=== PATIENT | female | born 1950 | race Caucasian/White ===

== ENCOUNTER 2017-11-26 22:43 | Observation (INO) | payer MEDICARE ==
[2017-11-26] MEDS ORDERED: Aspirin Low Dose CHEW TAB* 81 MG PO ONE (23:27)
[2017-11-26] MEDS ORDERED: Morphine INJ* 4 MG/ML 1 ML SYRINGE (NEW SYRINGE VERSION) IV ONE (23:27)
[2017-11-26] MEDS ORDERED: Ondansetron INJ* 2 MG/ML VIAL IV ONE (23:27)
[2017-11-27 00:38] LABS: ABS Basophils 0.1 10^3/ul (0-0.2); ABS Eosinophils 0 10^3/ul (0-0.6); ABS Lymphocytes 3.1 10^3/ul (1.0-4.8); ABS Monocytes 0.8 10^3/ul (0-0.8); ABS Nucleated RBC 0 10^3/ul; Eosinophil % 0.1 % (0-6); Hematocrit 44 % (35-47); Hemoglobin 14.2 g/dl (12.0-16.0); Lymphocyte % 20.3 % (25-47); Mean Corpuscular HGB Conc 33 g/dl (31-36); Mean Corpuscular Hemoglobin 25 pg (27-31); Mean Corpuscular Volume 76 fL (80-97); Mean Platelet Volume 8 um3 (7.4-10.4); Nucleated Red Blood Cells % 0.1; Platelet Count 251 10^3/ul (150-450); Red Blood Count 5.72 10^6/ul (4.0-5.4); Red Cell Distribution Width 14 % (10.5-15)
[2017-11-27 00:50] LABS: INR 1.14 (0.77-1.02)
[2017-11-27 00:55] LABS: EGFR Non-African American 54.8 (>60)
[2017-11-27] MEDS ORDERED: Morphine INJ* 4 MG/ML 1 ML SYRINGE (NEW SYRINGE VERSION) IV ONE (01:54)
--- NOTE | 2017-11-27 02:38 | ED ---
Topher Anton Tecjoon, scribed for Eliud Aldana MD on 11/26/17 at 2323 . HPI Chest Pain - HPI Summary HPI Summary: This patient is a 67 year old female BIBA to [facility] with a chief complaint of chest pain since approx. 1200 today. The pain is described as a pressure that radiates to her neck. The pain is rated 7/10 in severity. Symptoms aggravated by nothing. Symptoms alleviated by nothing. 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 Patient additionally reports nausea, vomiting. Patient states her last stress test was 2-3 years ago. - History of Current Complaint Chief Complaint: EDChestPainROMI Time Seen by Provider: 11/26/17 23:01 Hx Obtained From: Patient Onset/Duration: Started Hours Ago, Still Present Time of Onset: 12:00 Timing: Constant Initial Severity: Moderate Current Severity: Moderate Pain Intensity: 7 Pain Scale Used: 0-10 Numeric Chest Pain Location: Diffuse Chest Pain Radiates: Yes Chest Pain Radiates To:: Neck Character: Pressure/Squeezing Aggravating Factor(s): Nothing Alleviating Factor(s): Nothing Associated Signs and Symptoms: Positive: Other: - nausea, vomiting - Additional Pertinent History Primary Care Physician: [id number] - Allergy/Home Medications Allergies/Adverse Reactions: Allergies Allergy/AdvReac Type Severity Reaction Status Date / Time No Known Allergies Allergy Verified 08/12/16 05:48 PMH/Surg Hx/FS Hx/Imm Hx Previously Healthy: No Endocrine/Hematology History: Reports: Hx Thyroid Disease - hypo, Other Endocrine/Hematological Disorders - "inoperable adrenal mass" Cardiovascular History: Reports: Hx Hypertension Denies: Hx Coronary Artery Disease GI History: Reports: Hx Gall Bladder Disease - removed, Hx Ulcer History: Reports: Hx Kidney Infection, Hx Renal Disease - CKD Musculoskeletal History: Reports: Hx Back Problems, Hx Orthopedic Injury - knees Sensory History: Reports: Hx Contacts or Glasses Opthamlomology History: Reports: Hx Contacts or Glasses Neurological History: Reports: Hx Migraine, Hx Seizures, Other Neuro Impairments /Disorders - spinal stenosis L4/5 Psychiatric History: Reports: Hx Anxiety, Hx Depression - Surgical History Surgery Procedure, Year, and Place: TONSILS; CHOLECYSECTOMY; BARTHOLIN CYST REMOVAL; L4-5 DISCECTOMY, TONSILLECTOMY Hx Anesthesia Reactions: No - Immunization History Date of Tetanus Vaccine: 1999 Date of Influenza Vaccine: never Infectious Disease History: No Infectious Disease History: Denies: Traveled Outside the [place] in Last 30 Days - Family History Known Family History: Positive: Other - pos stroke Negative: Cardiac Disease - Social History Occupation: Retired Alcohol Use: Rare Hx Substance Use: No Substance Use Type: Reports: None Hx Tobacco Use: No Smoking Status (MU): Never Smoked Tobacco Review of Systems Negative: Fever Positive: Chest Pain Positive: Vomiting, Nausea All Other Systems Reviewed And Are Negative: Yes Physical Exam - Summary Physical Exam Summary: VITAL SIGNS: Reviewed. GENERAL: Patient is a well-developed and nourished female who is lying comfortable in the stretcher. Patient is not in any acute respiratory distress. HEAD AND FACE: No signs of trauma. No ecchymosis, hematomas or skull depressions. No sinus tenderness. EYES: PERRLA, EOMI x 2, No injected conjunctiva, no nystagmus. EARS: Hearing grossly intact. Ear canals and tympanic membranes are within normal limits. MOUTH: Oropharynx within normal limits. NECK: Supple, trachea is midline, no adenopathy, no JVD, no carotid bruit, no c- spine tenderness, neck with full ROM. CHEST: Symmetric, no tenderness at palpation LUNGS: Clear to auscultation bilaterally. No wheezing or crackles. CVS: Regular rate and rhythm, S1 and S2 present, no murmurs or gallops appreciated. ABDOMEN: Soft, non-tender. No signs of distention. No rebound no guarding, and no masses palpated. Bowel sounds are normal. EXTREMITIES: FROM in all major joints, no edema, no cyanosis or clubbing. NEURO: Alert and oriented x 3. No acute neurological deficits. Speech is normal and follows commands. SKIN: Dry and warm Triage Information Reviewed: Yes Vital Signs On Initial Exam: Initial Vitals Temp Pulse Resp BP Pulse Ox 98 F 88 18 144/88 96 11/26/17 22:56 11/26/17 22:56 11/26/17 22:56 11/26/17 22:56 11/26/17 22:56 Vital Signs Reviewed: Yes Diagnostics - Vital Signs Vital Signs Temp Pulse Resp BP Pulse Ox 11/26/17 22:56 98 F 88 18 144/88 96 - Laboratory Result Diagrams: 11/27/17 00:23 11/27/17 00:23 Lab Statement: Any lab studies that have been ordered have been reviewed, and results considered in the medical decision making process. - Radiology CXR Xray Interpretation: No Acute Changes - CXR reveals, per radiologist, IMPRESSION : No Acute Process. ED physician has reviewed this radiology report. Pending official report. Radiology Interpretation Completed By: ED Physician - EKG 2338 Cardiac Rate: NL EKG Rhythm: Sinus Rhythm - 77 BPM EKG Interpretation: NSR (77 BPM), ST depressions in anteroseptal leads. Chest Pain Course/Dx - Course Course Of Treatment: This patient is a 67 year old female BIBA to [facility] with a chief complaint of chest pain since approx. 1200 today. The pain is described as a pressure that radiates to her neck. 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 Patient additionally reports nausea, vomiting. An EKG, taken 2337, reveals NSR (77 BPM), ST depressions in anteroseptal leads. CXR reveals, per radiologist, IMPRESSION: No Acute Process. ED physician has reviewed this radiology report. Pending official report. Bloodwork Obtained. Urinalysis Obtained. In the ED course the patient was given Aspirin, Morphine, Zofran. We discussed patient care with Dr. Ramirez (Hospitalist) and they agreed to accept the patient. Patient will be admitted with a dx of chest pain. The patient is agreeable with this plan. - Diagnoses Provider Diagnoses: Chest pain - Provider Notifications Discussed Care Of Patient With: Arvind Ramirez - Hospitalist Time Discussed With Above Provider: 01:57 - We discussed patient care with Dr. Ramirez (Hospitalist) and they agreed to accept the patient. Instructed by Provider To: Admit As Inpatient Discharge - Discharge Plan Condition: Stable Disposition: ADMITTED TO [facility] Referrals: Non Staff,Doctor [Primary Care Provider] - The documentation as recorded by the Topher galarza Tecjoon accurately reflects the service I personally performed and the decisions made by , lEiud Aldana MD.
[2017-11-27] MEDS ORDERED: Ondansetron INJ* 2 MG/ML VIAL IV PRN (03:49)
[2017-11-27] MEDS ORDERED: CMCS:Melatonin (NF) 3 MG TAB PO PRN (03:49)
[2017-11-27] MEDS ORDERED: NS 0.9% 1000 ML* 1,000 ML IV SCH (04:00)
--- NOTE | 2017-11-27 04:09 | HP ---
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 Her main complaint to me is of needing more morphine because "morphine is what works", however she had just had 4mg morphine IV w/i the past 30minutes. Her pain is currently rated at 4/10, with no objective verification. She appears comfortable & at ease. PMedHx opioid withdrawal paroxysmal AFIB seizure disorder HTN CKD stg 3 hypothyroidism GI bleed 2nd duodenal ulcers anxiety Ambulatory Orders Nursing to reconcile. 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 FamHx: positive for alcoholism, CVA, & pancreatic CA ROS: as above, otherwise reviewed and all were negative vitals: Vital Signs Temp 36.6 C 11/26/17 22:56 Pulse 67 11/27/17 03:00 Resp 18 11/27/17 03:00 BP 142/79 11/27/17 03:00 Pulse Ox 95 11/27/17 03:00 Intake & Output 03/06/0711/26/17 11/27/17 11:59 23:59 11:59 Weight 99.79 kg Constitutional: NAD, normally developed, obese white female HEENM: atraumatic; sclera/conjunctiva: anicteric/clear; hearing: clinically intact; oropharynx: clear, mucosa moist Neck: soft tissue: non-tender; thyroid: normal Pulmonary: clear to auscultation bilaterally, good aeration, no accessory muscle use CV: RR/RR, normal S1S2, no carotid bruit, no jugular venous distention, 2+ B DP/ PT, no edema Abdominal: soft, non-distended, non-tender, no rebound/guarding/rigidity, normoactive bowel sounds, no hepatosplenomegaly or masses, no costovertebral angle tenderness Musculoskeletal: general: grossly intact, no tenderness to palpation Integumental: normal appearance and texture of exposed skin Psychiatric orientation: AA&O to PPS affect: calm mood: cooperative eye contact: fair to good content: reliable responses: timely insight: fair Testing: Lab Results 11/27/17 11/27/17 11/27/17 Range/Units 00:23 00:23 00:23 WBC 15.0 H (3.5-10.8) 10^3/ul RBC 5.72 H (4.0-5.4) 10^6/ul Hgb 14.2 (12.0-16.0) g/dl Hct 44 (35-47) % MCV 76 L (80-97) fL MCH 25 L (27-31) pg MCHC 33 (31-36) g/dl RDW 14 (10.5-15) % Plt Count 251 (150-450) 10^3/ul MPV 8 (7.4-10.4) um3 Neut % (Auto) 73.5 (38-83) % Lymph % (Auto) 20.3 L (25-47) % [place] % (Auto) 5.5 (0-7) % Eos % (Auto) 0.1 (0-6) % Baso % (Auto) 0.6 (0-2) % Absolute Neuts (auto) 11.0 H (1.5-7.7) 10^3/ul Absolute Lymphs (auto) 3.1 (1.0-4.8) 10^3/ul Absolute Monos (auto) 0.8 (0-0.8) 10^3/ul Absolute Eos (auto) 0 (0-0.6) 10^3/ul Absolute Basos (auto) 0.1 (0-0.2) 10^3/ul Absolute Nucleated RBC 0 10^3/ul Nucleated RBC % 0.1 INR (Anticoag Therapy) 1.14 H (0.77-1.02) APTT 28.5 (26.0-36.3) seconds Sodium (133-145) mmol/L Potassium Chloride (101-111) mmol/L Carbon Dioxide (22-32) mmol/L Anion Gap (2-11) mmol/L BUN (6-24) mg/dL Creatinine (0.51-0.95) mg/dL Est GFR ( Amer) (>60) Est GFR (Non-Af Amer) (>60) BUN/Creatinine Ratio (8-20) Glucose (70-100) mg/dL Lactic Acid (0.5-2.0) mmol/L Calcium (8.6-10.3) mg/dL Magnesium (1.9-2.7) mg/dL Total Bilirubin (0.2-1.0) mg/dL AST ALT (7-52) U/L Alkaline Phosphatase (34-104) U/L Troponin I (<0.04) ng/mL B-Natriuretic Peptide 60 ( - 100) pg/mL Total Protein (6.4-8.9) g/dL Albumin (3.2-5.2) g/dL Globulin (2-4) g/dL Albumin/Globulin Ratio (1-3) TSH (0.34-5.60) mcIU/mL 11/27/17 11/27/17 11/27/17 Range/Units 00:23 00:23 03:15 WBC (3.5-10.8) 10^3/ul RBC (4.0-5.4) 10^6/ul Hgb (12.0-16.0) g/dl Hct (35-47) % MCV (80-97) fL MCH (27-31) pg MCHC (31-36) g/dl RDW (10.5-15) % Plt Count (150-450) 10^3/ul MPV (7.4-10.4) um3 Neut % (Auto) (38-83) % Lymph % (Auto) (25-47) % [place] % (Auto) (0-7) % Eos % (Auto) (0-6) % Baso % (Auto) (0-2) % Absolute Neuts (auto) (1.5-7.7) 10^3/ul Absolute Lymphs (auto) (1.0-4.8) 10^3/ul Absolute Monos (auto) (0-0.8) 10^3/ul Absolute Eos (auto) (0-0.6) 10^3/ul Absolute Basos (auto) (0-0.2) 10^3/ul Absolute Nucleated RBC 10^3/ul Nucleated RBC % INR (Anticoag Therapy) (0.77-1.02) APTT (26.0-36.3) seconds Sodium 135 (133-145) mmol/L Potassium TNP 3.0 L Chloride 101 (101-111) mmol/L Carbon Dioxide 25 (22-32) mmol/L Anion Gap 9 (2-11) mmol/L BUN 17 (6-24) mg/dL Creatinine 1.01 H (0.51-0.95) mg/dL Est GFR ( Amer) 70.5 (>60) Est GFR (Non-Af Amer) 54.8 (>60) BUN/Creatinine Ratio 16.8 (8-20) Glucose 118 H (70-100) mg/dL Lactic Acid 0.9 (0.5-2.0) mmol/L Calcium 9.8 (8.6-10.3) mg/dL Magnesium 1.9 (1.9-2.7) mg/dL Total Bilirubin 0.50 (0.2-1.0) mg/dL AST TNP 12 L ALT 8 (7-52) U/L Alkaline Phosphatase 79 (34-104) U/L Troponin I 0.03 (<0.04) ng/mL B-Natriuretic Peptide ( - 100) pg/mL Total Protein 7.4 (6.4-8.9) g/dL Albumin 4.1 (3.2-5.2) g/dL Globulin 3.3 (2-4) g/dL Albumin/Globulin Ratio 1.2 (1-3) TSH 0.13 L (0.34-5.60) mcIU/mL ECG, personally reviewed: NSR rate 77, occasional PACs, biphasic T in V1-4, otherwise diffuse non-specific ST depressions; similar but improved compared to 08/13/2016 CXR, personally reviewed: no acute process CTA chest, personally reviewed: IMPRESSION: 1. NO PULMONARY ARTERIAL FILLING DEFECT TO SUGGEST PULMONARY EMBOLISM. 2. THE PULMONARY ARTERY IS ENLARGED SUGGESTIVE OF PULMONARY ARTERIAL HYPERTENSION CT brain WO, personally reviewed: IMPRESSION: NO EVIDENCE FOR GROSS ACUTE INFARCT, MASS EFFECT OR HEMORRHAGE. Impression: 67F presenting with chest pain for r/o ACS DIAGNOSIS & PLAN Primary chest pain r/o ACS : telemetry : trend troponin : recheck ECG in AM : consider cardiology consult pending above results : supplemental oxygen : supportive care Secondary opioid withdrawal : no acute issues paroxysmal AFIB : review meds once reconciled seizure disorder : review meds once reconciled HTN : review meds once reconciled CKD stg 3 : periodic monitoring hypothyroidism : review meds once reconciled GI bleed 2nd duodenal ulcers : omeprazole anxiety : review meds once reconciled Admission Rational: observation for r/o ACS DVTp: heparin SQ Code Status: full HCP: sisterRenetta
[2017-11-27] MEDS: Omeprazole CAP* 20 MG PO SCH (06:36)
[2017-11-27 06:51] LABS: ABS Basophils 0 10^3/ul (0-0.2); ABS Eosinophils 0 10^3/ul (0-0.6); ABS Lymphocytes 3.9 10^3/ul (1.0-4.8); ABS Monocytes 0.8 10^3/ul (0-0.8); ABS Neutrophils 7.5 10^3/ul (1.5-7.7); ABS Nucleated RBC 0 10^3/ul; Eosinophil % 0.2 % (0-6); Hematocrit 42 % (35-47); Hemoglobin 14.1 g/dl (12.0-16.0); Lymphocyte % 31.6 % (25-47); Mean Corpuscular HGB Conc 33 g/dl (31-36); Mean Corpuscular Hemoglobin 25 pg (27-31); Mean Corpuscular Volume 76 fL (80-97); Mean Platelet Volume 8 um3 (7.4-10.4); Nucleated Red Blood Cells % 0; Platelet Count 247 10^3/ul (150-450); Red Blood Count 5.59 10^6/ul (4.0-5.4); Red Cell Distribution Width 14 % (10.5-15); White Blood Count 12.3 10^3/ul (3.5-10.8)
[2017-11-27 07:20] LABS: EGFR Non-African American 58.1 (>60)
--- NOTE | 2017-11-27 07:54 | RAD ---
HISTORY: Chest pain COMPARISONS: August 12, 2016 VIEWS: 1: frontal portable view of the chest at 11:37 PM FINDINGS: LINES AND TUBES: None. CARDIOMEDIASTINAL SILHOUETTE: The cardiomediastinal silhouette is stable. PLEURA: The costophrenic angles are sharp. No pleural abnormalities are noted. LUNG PARENCHYMA: The lungs are clear. ABDOMEN: The upper abdomen is clear. There is no subphrenic gas. BONES AND SOFT TISSUES: No bone or soft tissue abnormalities are noted. IMPRESSION: NO ACTIVE CARDIOPULMONARY DISEASE.
[2017-11-27] MEDS ORDERED: Potassium Chlor TAB* 20 MEQ TAB.ER PO ONE (08:48)
--- NOTE | 2017-11-27 11:54 | PN ---
Subjective Date of Service: 11/27/17 Interval History: Reports that chest pain is improved since yesterday. Reports that she has a pressure but improved from yesterday. States that she was recently placed on a taper dosing of oxycontin and ran out of her medication. states that she took to many during the beginning of the taper and that is why she ran out. States that she is to followup with [facility] on Wednesday. She reports that she believes that her chest pain is related to not having her oxycontin. Denies n/v/d. Denies hallucinations, denies tremors or abd pain. Denies shortness of breath. Family History: Unchanged from Admission Social History: Unchanged from Admission Past Medical History: Unchanged from Admission Objective Active Medications: Acetaminophen (Tylenol Tab*) 650 mg PO Q6H PRN PRN Reason: FEVER/PAIN Aspirin (Aspirin Ec Low Dose*) 81 mg PO DAILY [facility] Escitalopram Oxalate (Lexapro (Nf)) 10 mg PO QAM [facility] Heparin Sodium (Porcine) (Heparin Vial(*)) 5,000 units SUBCUT Q8HR [facility] Sodium Chloride (Ns 0.9% 1000 Ml*) 1,000 mls @ 50 mls/hr IV PER RATE [facility] Last Admin: 11/27/17 11:01 Dose: 50 mls/hr Potassium Chloride (Potassium Chloride 20 Meq/100 Ml Ivpremix*) 20 meq in 100 mls @ 50 mls/hr IV ONCE ONE Stop: 11/27/17 13:04 Levetiracetam (Keppra Tab*) 1,000 mg PO BID [facility] Levothyroxine Sodium (Synthroid Tab*) 88 mcg PO DAILY [facility] Melatonin (Melatonin (Nf)) 3 mg PO BEDTIME PRN; Protocol PRN Reason: Sleep Omeprazole (Prilosec Cap*) 20 mg PO DAILY@0600 [facility] Last Admin: 11/27/17 06:36 Dose: 20 mg Ondansetron HCl (Zofran Inj*) 4 mg IV Q6H PRN PRN Reason: NAUSEA Vital Signs - 8 hr 11/27/17 11/27/17 11/27/17 03:55 04:00 04:10 Temperature 98.2 F Pulse Rate 64 78 76 Respiratory 12 16 11 Rate Blood Pressure 116/81 121/79 116/81 (mmHg) O2 Sat by Pulse 95 97 97 Oximetry 11/27/17 11/27/17 11/27/17 04:21 04:30 05:27 Temperature 97.3 F 97.3 F Pulse Rate 56 74 56 Respiratory 20 18 20 Rate Blood Pressure 115/65 118/76 115/65 (mmHg) O2 Sat by Pulse 95 95 95 Oximetry Oxygen Devices in Use Now: None Appearance: appears comfortable lying in bed Eyes: No Scleral Icterus Ears/Nose/Mouth/Throat: Clear Oropharnyx, Mucous Membranes Moist Neck: Trachea Midline Respiratory: Symmetrical Chest Expansion and Respiratory Effort, Clear to Auscultation Cardiovascular: NL Sounds; No Murmurs; No JVD, RRR, No Edema Abdominal: NL Sounds; No Tenderness; No Distention Extremities: No Edema, No Clubbing, Cyanosis Skin: No Rash or Ulcers Neurological: Alert and Oriented x 3 Nutrition: Taking PO's Result Diagrams: 11/27/17 06:32 11/27/17 06:32 Assess/Plan/Problems-Billing Assessment: 67 y.o female that presented to the ER for chest pain. Patient states that she ran out of her oxycontin and that she was placed on a taper dosing approx 3 weeks ago. states that she is not sure why they placed her on a taper dosing. states that she believes that her chest pain is related to anxiety of not having her oxycontin. - Patient Problems (1) Chest pain Current Visit: No Status: Acute Code(s): R07.9 - CHEST PAIN, UNSPECIFIED SNOMED Code(s): 91392402 Comment: atypical, troponins negative non exertional not reproducible ~ suspect this may be related to anxiety of not having pain medications- recently placed on taper dosing of oxycontin and was to finish taper on wednesday but ran out of medications ~ Patient is refusing stress test at this time does not feel it is needed (2) Hypokalemia Current Visit: Yes Status: Acute Code(s): E87.6 - HYPOKALEMIA SNOMED Code( s): 87635097 Comment: potassium level 2.7 WIll give potassium 40 meq Po and 20 meq IV Repeat K level at 1800 and in AM will replace as needed (3) Anxiety Current Visit: Yes Status: Acute Code(s): F41.9 - ANXIETY DISORDER, UNSPECIFIED SNOMED Code(s): 06600172 Comment: ~ suspect this is related to recent changes in her oxycontin and running out of her medication after being placed on a taper dosing ~ will give 1 dose of oxycontin 10 mg ~ also suspect this is related to recent lost of a significant other ~ will continue xanax (4) DVT prophylaxis Current Visit: No Status: Acute Code(s): DNI2683 - SNOMED Code(s): 413254396 Comment: Heparin SubQ (5) Full code status Current Visit: Yes Status: Acute Code(s): Z78.9 - OTHER SPECIFIED HEALTH STATUS SNOMED Code(s): 207829393 Status and Disposition: inpatient
[2017-11-27] MEDS: Levothyroxine TAB* 88 MCG TAB PO SCH (12:30)
[2017-11-27] MEDS: levETIRAcetam TAB* 500 MG PO SCH ×2 (12:30→20:13)
[2017-11-27] MEDS: KCL 10 MEQ/50 ML IVPREMIX* 10 MEQ/50 ML BAG IV SCH ×2 (12:32→13:49)
[2017-11-27] MEDS: CMC Escitalopram (NF) 10 MG TAB PO SCH (15:17)
[2017-11-27] MEDS ORDERED: oxyCODONE SR TAB(*) 10 MG TAB.SR PO ONE (15:27)
[2017-11-27] MEDS: ALPRAZolam TAB* 0.25 MG PO PRN (16:10)
[2017-11-27] MEDS: Acetaminophen TAB* 325 MG PO PRN (23:29)
[2017-11-28] MEDS: ALPRAZolam TAB* 0.25 MG PO PRN ×2 (03:35→11:37)
[2017-11-28 05:14] LABS: ABS Basophils 0 10^3/ul (0-0.2); ABS Eosinophils 0.1 10^3/ul (0-0.6); ABS Lymphocytes 3.1 10^3/ul (1.0-4.8); ABS Monocytes 0.6 10^3/ul (0-0.8); ABS Neutrophils 4.7 10^3/ul (1.5-7.7); ABS Nucleated RBC 0 10^3/ul; Eosinophil % 0.7 % (0-6); Hematocrit 37 % (35-47); Hemoglobin 12.1 g/dl (12.0-16.0); Mean Corpuscular HGB Conc 32 g/dl (31-36); Mean Corpuscular Hemoglobin 25 pg (27-31); Mean Corpuscular Volume 76 fL (80-97); Mean Platelet Volume 8 um3 (7.4-10.4); Nucleated Red Blood Cells % 0.1; Platelet Count 189 10^3/ul (150-450); Red Blood Count 4.92 10^6/ul (4.0-5.4); Red Cell Distribution Width 14 % (10.5-15); White Blood Count 8.5 10^3/ul (3.5-10.8)
[2017-11-28] MEDS: Heparin VIAL(*) 5000 UNITS/ML VIAL (FIVE THOUSAND) SUBCUT SCH ×3 (05:31→21:29)
[2017-11-28] MEDS: Omeprazole CAP* 20 MG PO SCH (05:32)
[2017-11-28] MEDS: Levothyroxine TAB* 88 MCG TAB PO SCH (05:32)
[2017-11-28 05:34] LABS: EGFR Non-African American 63.5 (>60)
[2017-11-28] MEDS ORDERED: Potassium Chlor TAB* 10 MEQ TAB.ER PO ONE ×2 (08:41→15:00)
[2017-11-28] MEDS: CMC Escitalopram (NF) 10 MG TAB PO SCH (10:50)
[2017-11-28] MEDS: Carvedilol TAB* 25 MG PO SCH (10:50)
[2017-11-28] MEDS: Aspirin EC Low Dose* 81 MG TAB.EC PO SCH (10:50)
[2017-11-28] MEDS: amLODIPine TAB* 5 MG PO SCH (10:50)
[2017-11-28] MEDS: levETIRAcetam TAB* 500 MG PO SCH ×2 (10:50→19:59)
--- NOTE | 2017-11-28 12:12 | ECHO ---
Patient: TREY TIDWELL [facility] Rec#: [id number] : 1950 Date: 11/28/2017 Age: 67y Height: 167.6 cm / 66.0 in Weight: 99.8 kg / 220.0 lbs Sex: F BSA: 2.1 Room#: 434 Admit Date#: 11/27/2017 Type: Inpatient Referring: Arvind Ramirez MD Reading: Brandin Hernández MD Soda Worker: Judy Quarles RN RDCS Transthoracic Echocardiogram Indication: Chest pain BP: 139/83 HR: 58 Rhythm: Bradycardia Findings History: HTN, hypothyroidism, PAF, CKD, seizure disorder, duodenal ulcers, opioid withdrawal Technical Comments: The study quality is fair. The study is technically limited due to patient body habitus. Completed at 1110. Left Ventricle: The left ventricular chamber size is normal. Mild to moderate concentric left ventricular hypertrophy is observed. Global left ventricular wall motion and contractility are within normal limits. There is normal left ventricular systolic function. The estimated ejection fraction is 55-60%. There is an E to A reversal in the mitral valve flow pattern suggestive of diastolic dysfunction. Left Atrium: The left atrium is slightly dilated. Right Ventricle: The right ventricle wall thickness is moderately increased. The right ventricular cavity size is normal. The right ventricular global systolic function is normal. Right Atrium: The right atrial cavity size is normal. Aortic Valve: The aortic valve is trileaflet. The aortic valve leaflets are mildly thickened. There is no evidence of aortic regurgitation. There is no evidence of aortic stenosis. Mitral Valve: The mitral valve leaflets are mildly thickened. There is a trace of mitral regurgitation. There is no evidence of mitral stenosis. Tricuspid Valve: The tricuspid valve leaflets are normal. There is trace to mild tricuspid regurgitation. No pulmonary hypertension is noted. There is no tricuspid stenosis. Pulmonic Valve: The pulmonic valve appears normal. There is a trace pulmonic regurgitation. There is no pulmonic stenosis. Pericardium: There is no significant pericardial effusion. A pericardial fat pad is visualized. Aorta: There is mild dilatation of the ascending aorta. There is mild dilatation of the aortic arch. There is no dilation of the aortic root. Pulmonary Artery: The main pulmonary artery is not well visualized. Venous: The inferior vena cava appears normal in size. There is a greater than 50% respiratory change in the inferior vena cava dimension. Conclusions Global left ventricular wall motion and contractility are within normal limits. There is normal left ventricular systolic function. The estimated ejection fraction is 55-60%. The right ventricular global systolic function is normal. There is no evidence of aortic stenosis. There is a trace of mitral regurgitation. There is trace to mild tricuspid regurgitation. There is no significant pericardial effusion. There is mild dilatation of the ascending aorta. Compared to study of 08/13/16, the LV function and valves are the same, Asc aorta was 3.4 cm and now is 3.9 cm Measurements Name Value Normal Range RVDdMajor (2D) 3.5 cm (2.2 - 4.4) RVAW (2D) 1 cm (0.2 - 0.5) RAd ISD 4CH 4.4 cm (3.4 - 4.9) RA (A4C)W 3.7 cm (2.9 - 4.6) IVSd (2D) 1.5 cm (0.6 - 1) LVPWd (2D) 1.2 cm (0.6 - 1) LVIDd (2D) 4.3 cm (3.6 - 5.4) LVIDs (2D) 3 cm - LV FS (2D) 30 % (25 - 45) Aortic Annulus 2.1 cm (1.4 - 2.6) Ao root diameter (2D) 3.4 cm (2.1 - 3.5) Ascending Ao 3.9 cm (2.1 - 3.4) Aortic arch 3.5 cm (1.8 - 3.4) LA dimension (AP) 2D 4.3 cm (2.3 - 3.8) LAd ISD 4CH 5.2 cm (2.9 - 5.3) LA ISD 4CH W 4 cm (2.5 - 4.5) Name Value Normal Range LA ESV SP 4CH (A/L) 69 ml - LA ESV SP 2CH (A/L) 51 ml - LA ESV BP (A/L) 61 ml - LA ESV BP (A/L) index 29 ml/m2 - LA ESV SP 4CH (MOD) 63 ml - LA ESV SP 2CH (MOD) 47 ml - Name Value Normal Range MV E-wave Vmax 0.62 m/sec - MV deceleration time 330 msec - MV A-wave Vmax 0.89 m/sec - MV E:A ratio 0.69 ratio - LV septal e' Vmax 0.07 m/sec - LV lateral e' Vmax 0.07 m/sec - LV E:e' septal ratio 8.9 ratio - LV E:e' lateral ratio 8.9 ratio - Name Value Normal Range AV Vmax 1.6 m/sec - AV VTI 34.2 cm - AV peak gradient 9.8 mmHg - AV mean gradient 5 mmHg - LVOT Vmax 0.97 m/sec - LVOT VTI 24.5 cm - LVOT peak gradient 3.8 mmHg - LVOT mean gradient 2.1 mmHg - JOSE Vmax 0.45 m/sec - Name Value Normal Range TR Vmax 2.6 m/sec - TR peak gradient 27 mmHg - RAP 3 mmHg - RVSP 30 mmHg - IVC diameter 1.6 cm - Name Value Normal Range PV Vmax 1 m/sec -
[2017-11-28] MEDS: Acetaminophen TAB* 325 MG PO PRN ×2 (12:37→20:00)
[2017-11-28] MEDS: Ibuprofen TAB* 400 MG PO PRN (15:28)
[2017-11-28] MEDS: cloNIDine TAB* 0.1 MG PO PRN (16:10)
[2017-11-28] MEDS ORDERED: Magnesium Sulfate 1 GM IV* 1 GM/100 ML BAG IV ONE (17:27)
--- NOTE | 2017-11-28 18:55 | PN ---
Subjective Date of Service: 11/28/17 Interval History: states that she is feeling better today. states that her mind feels better. Denies chest pain or shortness of breath. Denies abd pain. Denies n/v/d. Family History: Unchanged from Admission Social History: Unchanged from Admission Past Medical History: Unchanged from Admission Objective Active Medications: Acetaminophen (Tylenol Tab*) 650 mg PO Q6H PRN PRN Reason: FEVER/PAIN Last Admin: 11/28/17 12:37 Dose: 650 mg Alprazolam (Xanax Tab*) 1 mg PO Q8H PRN PRN Reason: ANXIETY Last Admin: 11/28/17 11:37 Dose: 1 mg Amlodipine Besylate (Norvasc Tab*) 10 mg PO DAILY [facility] Last Admin: 11/28/17 10:50 Dose: 10 mg Aspirin (Aspirin Ec Low Dose*) 81 mg PO DAILY [facility] Last Admin: 11/28/17 10:50 Dose: 81 mg Carvedilol (Coreg Tab*) 25 mg PO DAILY [facility] Last Admin: 11/28/17 10:50 Dose: 25 mg Clonidine HCl (Catapres Tab*) 0.1 mg PO Q8H PRN PRN Reason: WITHDRAWAL SYMPTOMS Last Admin: 11/28/17 16:10 Dose: 0.1 mg Escitalopram Oxalate (Lexapro (Nf)) 10 mg PO QAM [facility] Last Admin: 11/28/17 10:50 Dose: 10 mg Heparin Sodium (Porcine) (Heparin Vial(*)) 5,000 units SUBCUT Q8HR [facility] Last Admin: 11/28/17 15:28 Dose: 5,000 units Ibuprofen (Motrin Tab*) 400 mg PO Q6H PRN PRN Reason: PAIN Last Admin: 11/28/17 15:28 Dose: 400 mg Levetiracetam (Keppra Tab*) 1,000 mg PO BID [facility] Last Admin: 11/28/17 10:50 Dose: 1,000 mg Levothyroxine Sodium (Synthroid Tab*) 88 mcg PO 0600 [facility] Last Admin: 11/28/17 05:32 Dose: 88 mcg Melatonin (Melatonin (Nf)) 3 mg PO BEDTIME PRN; Protocol PRN Reason: Sleep Last Admin: 11/27/17 23:30 Dose: 3 mg Omeprazole (Prilosec Cap*) 20 mg PO DAILY@0600 [facility] Last Admin: 11/28/17 05:32 Dose: 20 mg Ondansetron HCl (Zofran Inj*) 4 mg IV Q6H PRN PRN Reason: NAUSEA Last Admin: 11/28/17 12:31 Dose: 4 mg Vital Signs - 8 hr 11/28/17 11/28/17 11/28/17 11:37 12:08 13:56 Temperature 98.4 F Pulse Rate 65 Respiratory 16 16 18 Rate Blood Pressure 179/95 (mmHg) O2 Sat by Pulse 97 Oximetry 11/28/17 15:41 Temperature 97.8 F Pulse Rate 70 Respiratory 16 Rate Blood Pressure 152/86 (mmHg) O2 Sat by Pulse 97 Oximetry Oxygen Devices in Use Now: None Appearance: appears comfortable resting in bed Eyes: No Scleral Icterus Ears/Nose/Mouth/Throat: Clear Oropharnyx, Mucous Membranes Moist Neck: NL Appearance and Movements; NL JVP, Trachea Midline Respiratory: Symmetrical Chest Expansion and Respiratory Effort, Clear to Auscultation Cardiovascular: NL Sounds; No Murmurs; No JVD, No Edema Abdominal: NL Sounds; No Tenderness; No Distention Extremities: No Edema, No Clubbing, Cyanosis Skin: No Rash or Ulcers Neurological: Alert and Oriented x 3 Nutrition: Taking PO's Result Diagrams: 11/28/17 04:58 11/28/17 04:58 Assess/Plan/Problems-Billing Assessment: 67 y.o female that presented to the ER for chest pain. Patient states that she ran out of her oxycontin and that she was placed on a taper dosing approx 3 weeks ago. states that she is not sure why they placed her on a taper dosing. states that she believes that her chest pain is related to anxiety of not having her oxycontin. - Patient Problems (1) Chest pain Current Visit: No Status: Acute Code(s): R07.9 - CHEST PAIN, UNSPECIFIED SNOMED Code(s): 09251232 Comment: atypical chest pain , troponins negative non exertional not reproducible ~ suspect this may be related to anxiety of not having pain medications- recently placed on taper dosing of oxycontin and was to finish taper on wednesday but ran out of medications ~ Patient agreeing to stress test today~ will order Nuclear stress test ~ chemical for the AM ~ transthoracic ECHO completd and ~ EF 55-60% (2) Hypokalemia Current Visit: Yes Status: Acute Code(s): E87.6 - HYPOKALEMIA SNOMED Code( s): 63377318 Comment: potassium level 3.1 this AM WIll give potassium 40 meq Po and repeat dose at 1500 Repeat K level in AM will replace as needed (3) Anxiety Current Visit: Yes Status: Acute Code(s): F41.9 - ANXIETY DISORDER, UNSPECIFIED SNOMED Code(s): 05747076 Comment: ~ suspect this is related to recent changes in her oxycontin and running out of her medication after being placed on a taper dosing ~ patient continue to request oxycontin 1 dose , explained to patient that her pain management doctor weaned her off this medication and there would be no further doses of oxycontin given. ~ spoke to Loraine Oliveira METER MECHANIC from [facility] who reported that from the patients chart the patient is to be taper and weaned from the medication. She also states that when they wean medications they usually prescribe a benzo and clondine to help with withdrawl symptoms ~ she is currently on xanax and will order clonidine ~ also suspect this is related to recent lost of a significant other ~ will continue xanax (4) DVT prophylaxis Current Visit: No Status: Acute Code(s): OJT2764 - SNOMED Code(s): 469713156 Comment: Heparin SubQ (5) Full code status Current Visit: Yes Status: Acute Code(s): Z78.9 - OTHER SPECIFIED HEALTH STATUS SNOMED Code(s): 875042390 Status and Disposition: inpatient~ poss d/c in AM if stress is negative
[2017-11-28] MEDS: ALPRAZolam TAB* 0.5 MG PO PRN (19:59)
[2017-11-29] MEDS: Ibuprofen TAB* 400 MG PO PRN ×2 (00:43→14:44)
[2017-11-29] MEDS: cloNIDine TAB* 0.1 MG PO PRN ×2 (00:44→11:13)
[2017-11-29] MEDS: Heparin VIAL(*) 5000 UNITS/ML VIAL (FIVE THOUSAND) SUBCUT SCH ×2 (05:47→14:32)
[2017-11-29] MEDS: Omeprazole CAP* 20 MG PO SCH (05:47)
[2017-11-29] MEDS: Levothyroxine TAB* 88 MCG TAB PO SCH (05:47)
[2017-11-29] MEDS: ALPRAZolam TAB* 0.5 MG PO PRN ×2 (07:16→14:32)
--- NOTE | 2017-11-29 10:58 | RAD ---
Edited for charges. INDICATION: Chest pain. Family history of heart disease. Hypertension and obesity. COMPARISON: No relevant prior exams available on the [facility] [place] for comparison. TECHNIQUE: 10.400 mCi of Tc-99m Myoview were administered IV. SPECT images of the heart were obtained. Later on the same day. Under the direction of Dr. Olsen, the patient was given an IV injection of a pharmacologic stress agent. Subsequently, the patient was given an IV injection of 25.900 mCi Tc-99m Myoview. SPECT images of the heart were obtained and a gated wall motion study was performed. FINDINGS: Gated wall motion images were obtained at stress and demonstrate global hypokinesia. The calculated left ventricular ejection fraction is 38 % at stress. Estimated LEFT ventricular end diastolic volume is 73 mL. TID 1.17. Based on review of the attenuation corrected and non corrected images the distribution of radiopharmaceutical within the myocardium on the stress and rest images is within normal limits. No fixed or reversible regions of hypoperfusion evident. IMPRESSION: 1. No evidence for stress-induced ischemia or presence of an infarct. 2. Borderline elevated transient ischemic dilatation (TID).; consider distal small vessel disease. ASSESSMENT: Low risk based on nuclear portion. Based on imaging criteria from ACC/AHA 2002 Guideline Update for the Management of Patients With Chronic Stable Angina Table 23. Noninvasive Risk Stratification. MTDD
[2017-11-29] MEDS: Carvedilol TAB* 25 MG PO SCH (11:12)
[2017-11-29] MEDS: Aspirin EC Low Dose* 81 MG TAB.EC PO SCH (11:12)
[2017-11-29] MEDS: amLODIPine TAB* 5 MG PO SCH (11:13)
[2017-11-29] MEDS: levETIRAcetam TAB* 500 MG PO SCH (11:13)
[2017-11-29] MEDS: CMC Escitalopram (NF) 10 MG TAB PO SCH (11:13)
--- NOTE | 2017-11-29 11:21 | PN ---
Subjective Date of Service: 11/29/17 Interval History: Patient states that she is feeling better no chest pain at this time. Denies shortness of breath or abd pain. Denies n/v/d. Family History: Unchanged from Admission Social History: Unchanged from Admission Past Medical History: Unchanged from Admission Objective Active Medications: Acetaminophen (Tylenol Tab*) 650 mg PO Q6H PRN PRN Reason: FEVER/PAIN Last Admin: 11/28/17 20:00 Dose: 650 mg Alprazolam (Xanax Tab*) 1 mg PO Q6H PRN PRN Reason: ANXIETY Last Admin: 11/29/17 07:16 Dose: 1 mg Amlodipine Besylate (Norvasc Tab*) 10 mg PO DAILY [facility] Last Admin: 11/28/17 10:50 Dose: 10 mg Aspirin (Aspirin Ec Low Dose*) 81 mg PO DAILY [facility] Last Admin: 11/28/17 10:50 Dose: 81 mg Carvedilol (Coreg Tab*) 25 mg PO DAILY [facility] Last Admin: 11/28/17 10:50 Dose: 25 mg Clonidine HCl (Catapres Tab*) 0.1 mg PO Q8H PRN PRN Reason: WITHDRAWAL SYMPTOMS Last Admin: 11/29/17 00:44 Dose: 0.1 mg Escitalopram Oxalate (Lexapro (Nf)) 10 mg PO QAM [facility] Last Admin: 11/28/17 10:50 Dose: 10 mg Heparin Sodium (Porcine) (Heparin Vial(*)) 5,000 units SUBCUT Q8HR [facility] Last Admin: 11/29/17 05:47 Dose: 5,000 units Ibuprofen (Motrin Tab*) 400 mg PO Q6H PRN PRN Reason: PAIN Last Admin: 11/29/17 00:43 Dose: 400 mg Levetiracetam (Keppra Tab*) 1,000 mg PO BID [facility] Last Admin: 11/28/17 19:59 Dose: 1,000 mg Levothyroxine Sodium (Synthroid Tab*) 88 mcg PO 0600 [facility] Last Admin: 11/29/17 05:47 Dose: 88 mcg Melatonin (Melatonin (Nf)) 3 mg PO BEDTIME PRN; Protocol PRN Reason: Sleep Last Admin: 11/27/17 23:30 Dose: 3 mg Omeprazole (Prilosec Cap*) 20 mg PO DAILY@0600 [facility] Last Admin: 11/29/17 05:47 Dose: 20 mg Ondansetron HCl (Zofran Inj*) 4 mg IV Q6H PRN PRN Reason: NAUSEA Last Admin: 11/28/17 12:31 Dose: 4 mg Vital Signs - 8 hr 11/29/17 11/29/17 11/29/17 04:42 07:16 07:17 Temperature 98.3 F 98.2 F Pulse Rate 55 53 Respiratory 20 16 16 Rate Blood Pressure 154/83 127/81 (mmHg) O2 Sat by Pulse 97 97 Oximetry Oxygen Devices in Use Now: None Appearance: appears comfortable sitting in the bed. Eyes: No Scleral Icterus Ears/Nose/Mouth/Throat: Clear Oropharnyx, Mucous Membranes Moist Neck: NL Appearance and Movements; NL JVP, Trachea Midline Respiratory: Symmetrical Chest Expansion and Respiratory Effort, Clear to Auscultation Cardiovascular: NL Sounds; No Murmurs; No JVD, No Edema Abdominal: NL Sounds; No Tenderness; No Distention Extremities: No Edema, No Clubbing, Cyanosis Skin: No Rash or Ulcers Neurological: Alert and Oriented x 3, NL Sensation, NL Muscle Strength and Tone Nutrition: Taking PO's Result Diagrams: 11/28/17 04:58 11/29/17 12:41 Assess/Plan/Problems-Billing Assessment: 67 y.o female that presented to the ER for chest pain. Patient states that she ran out of her oxycontin and that she was placed on a taper dosing approx 3 weeks ago. states that she is not sure why they placed her on a taper dosing. states that she believes that her chest pain is related to anxiety of not having her oxycontin. - Patient Problems (1) Chest pain Current Visit: No Status: Acute Code(s): R07.9 - CHEST PAIN, UNSPECIFIED SNOMED Code(s): 65555625 Comment: Nuclear Stress test ~ reported at low risk. atypical chest pain , troponins negative non exertional not reproducible ~ suspect this may be related to anxiety of not having pain medications- recently placed on taper dosing of oxycontin and was to finish taper on wednesday but ran out of medications ~ transthoracic ECHO completd and ~ EF 55-60% (2) Hypokalemia Current Visit: Yes Status: Acute Code(s): E87.6 - HYPOKALEMIA SNOMED Code( s): 22891324 Comment: potassium level 3.4 Will give 40 meq po prior to discharge and script for [place] 20 meq po daily repeat BMP in 2 days will replace as needed follow up with primary care in 1 to 3 days (3) Anxiety Current Visit: Yes Status: Acute Code(s): F41.9 - ANXIETY DISORDER, UNSPECIFIED SNOMED Code(s): 63801757 Comment: ~ suspect this is related to recent changes in her oxycontin and running out of her medication after being placed on a taper dosing ~ also suspect this is related to recent lost of a significant other ~ will continue xanax ~ she states that she is feeling better, states that the clonidine helped with her feeling of withdrawl. Follow up with Pain managemant as scheduled tomorrow follow up with Primary care in 1 to 3 days (4) DVT prophylaxis Current Visit: No Status: Acute Code(s): COE2487 - SNOMED Code(s): 910942858 Comment: Heparin SubQ (5) Full code status Current Visit: Yes Status: Acute Code(s): Z78.9 - OTHER SPECIFIED HEALTH STATUS SNOMED Code(s): 301548267 Status and Disposition: inpatient~ discharge home
[2017-11-29] MEDS ORDERED: Regadenoson* 0.4 MG/5 ML SYRINGE ONE (12:13)
[2017-11-29] MEDS ORDERED: Potassium Chlor TAB* 10 MEQ TAB.ER PO ONE (14:10)
[2017-11-29 15:40] VITALS: BP 102/60
--- NOTE | 2017-11-30 08:45 | DS ---
DISCHARGE SUMMARY: DATE OF ADMISSION: 11/27/17 DATE OF DISCHARGE: 11/29/17 PROVIDER: Diego Alvarez NP ATTENDING PHYSICIAN: Dr. Ángel Og* (dictated by Diego Alvarez NP) PRIMARY CARE PROVIDER: Unknown. PRIMARY DIAGNOSES: 1. Chest pain. 2. Anxiety. SECONDARY DIAGNOSES: 1. Opioid withdrawal. 2. Paroxysmal atrial fibrillation. 3. Seizure disorder. 4. Hypertension. 5. Chronic kidney disease stage 3. 6. Hypothyroidism. 7. GI bleed secondary to duodenal ulcer history. STUDIES COMPLETED WHILE IN THE HOSPITAL: 1. The patient had a chest x-ray on 11/26/17: No evidence of cardiopulmonary disease. 2. Transthoracic echocardiogram was completed on 11/27/17. Conclusion: Global left ventricular wall motion and contractility are within normal limits. Normal left ventricular systolic function. Estimated ejection fraction is 55 % to 60%. Right ventricular global systolic function is normal. There is no evidence of aortic stenosis. There is trace mitral regurgitation. Trace to mild tricuspid regurgitation. No significant pericardial effusion. There is mild dilation of the ascending aorta compared to study on 08/13/16. The left ventricular function and valves are the same. SC aorta was 3.4 cm and now is 3.9 cm. 3. Electrocardiogram on 11/28/17 showed sinus bradycardia at a rate of 58. 4. Nuclear stress test on 11/29/17. Impression: Low risk based on nuclear portion. 1. No evidence for stress-induced ischemia or presence of infarct. 2. Borderline elevated transient ischemic dilation, consider distal small vessel disease. There was no fixed or reversible regions of hyperperfusion evident. Resting images within normal limits. Stress imaging within normal limits. DISCHARGE MEDICATIONS: New home medications: 1. Clonidine 0.1 mg; may take one tablet daily as needed for withdrawal. 2. Potassium 20 mEq one tablet p.o. daily. Continued home medications: 1. Alprazolam 1 mg p.o. 4 times a day as needed for anxiety. 2. Amlodipine 10 mg p.o. daily. 3. Aspirin 81 mg p.o. daily. 4. Carvedilol 25 mg p.o. daily. 5. Lexapro 10 mg p.o. daily. 6. Keppra 1000 mg p.o. b.i.d. 7. Levothyroxine 88 mcg p.o. daily. 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 She denied any substernal radiating pressure associated with shortness of breath, nausea, as well as palpitations or lightheadedness. Her main complaint to me is needing morphine because morphine is what works. However, she had just had a 4 mg dose in the emergency room of morphine 30 minutes prior to her admission assessment. Initially, her troponins were all within normal limits at 0.03 x2 and 0.01. She continued to have chest pain throughout her hospitalization. When discussing her chest pain further, she does note that she feels anxious and feels that this is related to recently being placed on a tapered dose of OxyContin which she has run out of, and she reports that she is supposed to have a follow-up appointment with her physician at [facility] on Wednesday and that her taper dosing medication was supposed to last her until Wednesday. She continues to request OxyContin 10 mg to assist with her chest pain and anxiety. While in the hospital, I did contact [facility]. Per their chart, the patient is being tapered on her OxyContin 10 mg and does have a followup appointment with them on Wednesday. They recommended placing her on clonidine 0.1 mg daily to assess with the withdrawal symptoms. The patient was placed on this on 11/28/17, and does report on 11/29/17 relief of her symptoms of anxiety and that her chest pain has been relieved. I suspect that her chest pain is related to anxiety of tapering her OxyContin that she has been on for many years. She does report that she has severe underlying anxiety. She did receive a nuclear stress test that was reported as radiologist impression was low risk. There was no fixed perfusion defect noted. At this time Ms. Landry is stable for discharge home. PHYSICAL EXAMINATION: Vital Signs are as follows: Blood pressure 146/77, heart rate 67, O2 saturation on room air is 99%, and temperature 98.2. DISCHARGE PLAN: Ms. Landry will be discharged back home. Activity as tolerated. She should continue on a low-sodium, heart-healthy diet. In regards to her withdrawal from OxyContin, I have given her a prescription for clonidine 0.1 mg x1 tablet that she may take tomorrow if needed as she has followup with [facility], and they can further manage her weaning and tapering of pain medications. As for her chest pain, her nuclear stress test was low risk. I recommend that she follow up with her primary care physician if she continues to experience chest pain. As for anxiety, I recommend that she continue her Xanax 1 mg 4 times a day as needed for anxiety. For her hyperkalemia, she was given a prescription for potassium chloride 20 mEq one tablet p.o. daily, and is to have a repeat BMP in 2 days. FOLLOWUP: She should follow up with her primary care physician in 1 to 3 days. She should have a repeat BMP drawn in 2 days and follow up with her primary care physician for further monitoring. She should follow up with her primary care physician in 1 to 3 days. I recommend that she keep her scheduled [facility] appointment for tomorrow, Wednesday. This is a summarized report of her hospitalization; for further details please see the entire medical record. TIME SPENT: Time spent on this discharge was approximately 60 minutes, greater than half that time was spent with the patient discussing discharge plans and instructions. CONDITION ON DISCHARGE: Stable. DIEGO ALVAREZ NP [id number]/[facility] #: [id number] BLACK
== END 2017-11-29 17:51 | disposition home or self-care (01) ==
LOC: ED 22:43 → MEDTELE 11-27 03:47
PROVIDERS: ADMIT Hospitalist; ATTEND Internal Medicine
DX: R07.9 Chest pain, unspecified (principal); F41.9 Anxiety disorder, unspecified; F11.23 Opioid dependence with withdrawal; I48.91 Unspecified atrial fibrillation; G43.909 Migraine, unspecified, not intractable, without status migrainosus; E87.6 Hypokalemia; I77.819 Aortic ectasia, unspecified site; I12.9 Hypertensive chronic kidney disease with stage 1 through stage 4 chronic kidney disease, or unspecified chronic kidney disease; N18.3 Chronic kidney disease, stage 3 (moderate); E03.9 Hypothyroidism, unspecified; Z79.899 Other long term (current) drug therapy; R94.31 Abnormal electrocardiogram [ECG] [EKG]
CPT/HCPCS: 36415; 71045; 78452; 80048; 80053; 83605; 83735; 83880; 84132; 84443; 84484; 85025; 85610; 85730; 93005; 93017; 93306; 96372; 96374; 96375; 96376; 99285; A9270-GY; A9502; G0378; J1644; J2270; J2405; J2785; J3475; J3480

== ENCOUNTER 2018-05-26 00:36 | Inpatient (IN) | payer MEDICARE ==
[2018-05-26] MEDS ORDERED: NS 0.9% 1000 ML* 1,000 ML IV ONE (01:26)
[2018-05-26] MEDS ORDERED: Naloxone* 0.4 MG/ML 1 ML VIAL IV PUSH ONE (01:34)
--- NOTE | 2018-05-26 01:34 | ED ---
Complex/Multi-Sys Presentation - HPI Summary HPI Summary: This is John galarza, documenting for attending Eliud Aldana MD. Patient is a 68 y/o F BIBA c/o bilat knee pain and back spasms. Knee pain is described as sharp and rated a 9/10, per unit control worker. Lower back pain is described as spasms and rated a 3/10, per unit control worker. Assoc. Sx: bilat knee pain, She reports going to [employer] earlier today when she fell in the parking lot. A master police detective on the scene noticed this and followed her driving home. She was reportedly swerving all over the road so she was pulled over. The master police detective let her go because he said she was clearly sick. She returned home, attempted taking her groceries up to her 2nd floor apartment when she fell secondary to extreme bilateral knee pain and uncontrollable back spasms. She reports having no strength so she crawled up the stairs into her home. She sat down on the couch to catch her breath; She reports taking 30 mg of oxycodone that she found on the floor in her house while cleaning, this AM. - History Of Current Complaint Chief Complaint: EDGeneral Time Seen by Provider: 05/26/18 01:07 Hx Obtained From: Patient Onset/Duration: Gradual Onset, Lasting Hours Timing: Constant Associated Signs And Symptoms: Positive: SOB - Allergies/Home Medications Allergies/Adverse Reactions: Allergies Allergy/AdvReac Type Severity Reaction Status Date / Time No Known Allergies Allergy Verified 05/26/18 00:43 Home Medications: Home Medications Bupropion XL* [Wellbutrin XL *] 150 mg PO DAILY 05/26/18 [History Confirmed 03/07] Meloxicam 7.5 mg PO DAILY 05/26/18 [History Confirmed 05/26/18] Pantoprazole Sodium 20 mg PO DAILY 05/26/18 [History Confirmed 05/26/18] PMH/Surg Hx/FS Hx/Imm Hx Endocrine/Hematology History: Reports: Hx Thyroid Disease - hypo, Other Endocrine/Hematological Disorders - "inoperable adrenal mass" Cardiovascular History: Reports: Hx Hypertension, Other Cardiovascular Problems/ Disorders - Paroxymal A. Fib Denies: Hx Coronary Artery Disease GI History: Reports: Hx Gall Bladder Disease - removed, Hx Gastrointestinal Bleed, Hx Ulcer - Duodenal ulcer History: Reports: Hx Kidney Infection, Hx Renal Disease - CKD, Other Problems/Disorders - CKD stage III Musculoskeletal History: Reports: Hx Back Problems, Hx Orthopedic Injury - knees , Other Musculoskeletal History - L spine Surgery Sensory History: Reports: Hx Contacts or Glasses Denies: Hx Eye Injury, Hx Glaucoma, Hx Macular Degeneration, Hx Vision Problem, Hx Deafness, Hx Hearing Aid, Hx Hearing Problem, Other Sensory Impairments Opthamlomology History: Reports: Hx Contacts or Glasses Denies: Hx Eye Injury, Hx Glaucoma, Hx Macular Degeneration, Hx Vision Problem, Other Sensory Impairments Neurological History: Reports: Hx Migraine, Hx Seizures, Other Neuro Impairments /Disorders - spinal stenosis L4/5 Denies: Hx Dementia Psychiatric History: Reports: Hx Anxiety, Hx Depression - Surgical History Surgery Procedure, Year, and Place: TONSILS; CHOLECYSECTOMY; BARTHOLIN CYST REMOVAL; L4-5 DISCECTOMY, TONSILLECTOMY Hx Anesthesia Reactions: No - Immunization History Date of Tetanus Vaccine: unk Date of Influenza Vaccine: none Infectious Disease History: No Infectious Disease History: Denies: Hx Clostridium Difficile, Hx Hepatitis, Hx of Known/Suspected MRSA, Hx Shingles, Hx Tuberculosis, Hx Known/Suspected VRE, Hx Known/Suspected VRSA, Traveled Outside the [place] in Last 30 Days - Family History Known Family History: Positive: Other - pos stroke Negative: Cardiac Disease - Social History Occupation: Disabled Lives: With Family Alcohol Use: None Hx Substance Use: No Substance Use Type: Reports: None Substance Use Comment - Amount & Last Used: oxycodone/oxycotin Hx Tobacco Use: No Smoking Status (MU): Never Smoked Tobacco Review of Systems Positive: Shortness Of Breath Positive: Other - POS: bilat knee pain, back pain Positive: Weakness - bilat legs All Other Systems Reviewed And Are Negative: Yes Physical Exam - Summary Physical Exam Summary: VITAL SIGNS: Reviewed. GENERAL: Patient is a morbidly obese female who is lying comfortable in the stretcher. Patient is not in any acute respiratory distress. HEAD AND FACE: No signs of trauma. No ecchymosis, hematomas or skull depressions. No sinus tenderness. EYES: PERRLA, EOMI x 2, No injected conjunctiva, no nystagmus. EARS: Hearing grossly intact. Ear canals and tympanic membranes are within normal limits. MOUTH: Oropharynx within normal limits. NECK: Supple, trachea is midline, no adenopathy, no JVD, no carotid bruit, no c- spine tenderness, neck with full ROM. CHEST: Symmetric, no tenderness at palpation LUNGS: mild decreased breath sounds bilaterally. No wheezing or crackles. CVS: Regular rate and rhythm, S1 and S2 present, no murmurs or gallops appreciated. ABDOMEN: Soft, non-tender. No signs of distention. No rebound no guarding, and no masses palpated. Bowel sounds are normal. EXTREMITIES: FROM in all major joints, no edema, no cyanosis or clubbing. NEURO: Alert and oriented x 3. No acute neurological deficits. Speech is normal and follows commands. SKIN: Dry and warm Triage Information Reviewed: Yes Vital Signs On Initial Exam: Initial Vitals Temp Pulse Resp BP Pulse Ox 97.4 F 62 17 112/65 85 05/26/18 00:37 05/26/18 00:37 05/26/18 00:37 05/26/18 00:37 05/26/18 00:37 Vital Signs Reviewed: Yes Diagnostics - Vital Signs Vital Signs Temp Pulse Resp BP Pulse Ox 05/26/18 00:37 97.4 F 62 17 112/65 85 - Laboratory Result Diagrams: 05/26/18 01:41 05/26/18 01:41 Lab Statement: Any lab studies that have been ordered have been reviewed, and results considered in the medical decision making process. - Radiology CXR Xray Interpretation: No Acute Changes - IMPRESSION: no acute process Radiology Interpretation Completed By: ED Physician - ED physician reviewed this radiology report. Complex Multi-Symp Course/Dx Course Of Treatment: Provider ordered labs and a CXR for this patient - Results : negative. Provider spoke with Dr. Ramirez regarding further care of patient; She will be admitted with a Dx of multiple falls and acute renal failure - Diagnoses Provider Diagnoses: Acute renal failure, Multiple falls - Physician Notifications Discussed Care Of Patient With: Arvind Ramirez Time Discussed With Above Provider: 02:55 Instructed by Provider To: Other - Provider discussed further care of patient. She was accepted for admission by Dr. Ramirez. Discharge - Sign-Out/Discharge Documenting (check all that apply): Patient Departure - Discharge Plan Condition: Stable Disposition: ADMITTED TO POST MEDICAL Referrals: No Primary Care Phys,NOPCP [Primary Care Provider] - Additional Instructions: RETURN TO THE EMERGENCY DEPARTMENT FOR CHANGING OR WORSENING SYMPTOMS. FOLLOW UP WITH PCP IN 1-2 DAYS. - Attestation Statements Document Initiated by Scribe: Yes Documenting Scribe: John Cueto Provider For Whom Scribe is Documenting (Include Credential): Eliud Aldana MD Scribe Attestation: IJohn, scribed for Eliud Aldana MD on 05/26/18 at 0324.
[2018-05-26 02:00] LABS: ABS Basophils 0.1 10^3/ul (0-0.2); ABS Eosinophils 0.1 10^3/ul (0-0.6); ABS Lymphocytes 1.6 10^3/ul (1.0-4.8); ABS Monocytes 0.6 10^3/ul (0-0.8); ABS Neutrophils 12.7 10^3/ul (1.5-7.7); ABS Nucleated RBC 0 10^3/ul; Eosinophil % 0.4 % (0-6); Hematocrit 36 % (35-47); Hemoglobin 11.5 g/dl (12.0-16.0); Lymphocyte % 10.8 % (25-47); Mean Corpuscular HGB Conc 32 g/dl (31-36); Mean Corpuscular Hemoglobin 25 pg (27-31); Mean Corpuscular Volume 79 fL (80-97); Mean Platelet Volume 7.9 um3 (7.4-10.4); Nucleated Red Blood Cells % 0; Platelet Count 255 10^3/ul (150-450); Red Cell Distribution Width 13 % (10.5-15); White Blood Count 15.1 10^3/ul (3.5-10.8)
[2018-05-26 02:09] LABS: EGFR Non-African American 21.7 (>60)
[2018-05-26] MEDS ORDERED: Naloxone* 0.4 MG/ML 10 ML VIAL IV ONE (02:15)
--- NOTE | 2018-05-26 03:16 | HP ---
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 She states she was taken off all her narcotics "months ago" by her PCP, but that today (05/25) around noon she was cleaning her home and found a 30mg oxycontin pill, so she took it. Later she went to [employer] to eat, states she was stopped by police for driving erratically but released. When she returned home, she fell while getting into her home and had to crawl the rest of the way inside. The effort made her feel SOB, but she denies chest pain, palpitations, sweating, N/V, focal W/N/T, change in speech/ swallow, or other issues. She is not sure who called 911, but believes it may have been her sister. Upon evaluation, she was found to have an saO2 in the 80s and be lethargic. Naloxone was administered to good effect. ABG showed acute hypoxic hypercarbic respiratory failure. Chemistry showed a significant SUZETTE. She admits to taking 400mg ibuprofen BID & "occasional" Excedrin but cannot quantify - in addition her her prescribed meloxicam. PMedHx opioid withdrawal paroxysmal AFIB seizure disorder HTN CKD stg 3 hypothyroidism GI bleed 2nd duodenal ulcers anxiety Ambulatory Orders ALPRAZolam [Xanax] 1 mg PO Q4H PRN 08/12/16 Escitalopram Oxalate [Lexapro 10 mg] 20 mg PO QAM 08/12/16 Levothyroxine TAB* [Synthroid 88 MCG TAB*] 88 mcg PO DAILY 08/12/16 levETIRAcetam [Keppra 500] 500 mg PO BID 08/12/16 Aspirin EC TAB* [Ecotrin EC Low Dose 81 MG*] 81 mg PO DAILY tab.ec 08/14/16 Carvedilol [Coreg] 25 mg PO DAILY 11/28/17 amLODIPine TAB* [Norvasc 5 mg TAB*] 10 mg PO DAILY 11/28/17 Acetaminophen TAB* [Tylenol TAB*] 650 mg PO Q6H PRN tab 11/29/17 Bupropion XL* [Wellbutrin XL *] 150 mg PO DAILY 05/26/18 Meloxicam 7.5 mg PO DAILY 05/26/18 Pantoprazole Sodium 20 mg PO DAILY 05/26/18 Allergies No Known Allergies Allergy (Verified 05/26/18 00:43) PSurgHx cholecystectomy L-spine surgery tonsillectomy SocHx: no tobacco, alcohol, or recreational drugs; 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 alone; 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; 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 FamHx: positive for alcoholism, CVA, & pancreatic CA ROS: as above, otherwise reviewed and all were negative vitals: Vital Signs Temp 36.3 C 05/26/18 00:37 Pulse 67 05/26/18 02:14 Resp 24 05/26/18 02:14 BP 109/69 05/26/18 02:14 Pulse Ox 98 05/26/18 02:14 Intake & Output 05/25/18 05/25/18 05/26/18 11:59 23:59 11:59 Intake Total 1000 Balance 1000 Weight 97.522 kg Intake: IV Fluids 1000 Constitutional: NAD, normally developed, obese white female HEENM: atraumatic; sclera/conjunctiva: anicteric/mildly injected; hearing: clinically intact; oropharynx: clear, mucosa tacky Neck: soft tissue: non-tender; thyroid: normal Pulmonary: clear to auscultation bilaterally, good aeration, no accessory muscle use CV: RR/RR, normal S1S2, no carotid bruit, no jugular venous distention, 2+ B DP/ PT, no edema Abdominal: soft, non-distended, non-tender, no rebound/guarding/rigidity, normoactive bowel sounds, no hepatosplenomegaly or masses, no costovertebral angle tenderness Musculoskeletal: general: grossly intact, no tenderness to palpation Integumental: normal appearance and texture of exposed skin Psychiatric orientation: AA&O to PPS affect: calm mood: cooperative eye contact: fair to good content: reliable responses: timely insight: poor Testing: Lab Results 05/26/18 05/26/18 05/26/18 Range/Units 01:41 01:41 02:20 WBC 15.1 H (3.5-10.8) 10^3/ul RBC 4.60 (4.00-5.40) 10^6/ul Hgb 11.5 L (12.0-16.0) g/dl Hct 36 (35-47) % MCV 79 L (80-97) fL MCH 25 L (27-31) pg MCHC 32 (31-36) g/dl RDW 13 (10.5-15) % Plt Count 255 (150-450) 10^3/ul MPV 7.9 (7.4-10.4) um3 Neut % (Auto) 84.2 H (38-83) % Lymph % (Auto) 10.8 L (25-47) % Atkinson % (Auto) 4.0 (0-7) % Eos % (Auto) 0.4 (0-6) % Baso % (Auto) 0.6 (0-2) % Absolute Neuts (auto) 12.7 H (1.5-7.7) 10^3/ul Absolute Lymphs (auto) 1.6 (1.0-4.8) 10^3/ul Absolute Monos (auto) 0.6 (0-0.8) 10^3/ul Absolute Eos (auto) 0.1 (0-0.6) 10^3/ul Absolute Basos (auto) 0.1 (0-0.2) 10^3/ul Absolute Nucleated RBC 0 10^3/ul Nucleated RBC % 0 ABG pH 7.29 L (7.35-7.45) ABG pCO2 49 H (35-45) mmHg ABG pO2 77 L (80-100) mmHg ABG HCO3 22.4 (19-31) mmol/L ABG O2 Saturation 97.3 (95-98) % ABG Base Excess -3.2 L (-2.0-2.0) Sodium 139 (135-145) mmol/L Potassium 4.3 (3.5-5.0) mmol/L Chloride 105 (101-111) mmol/L Carbon Dioxide 23 (22-32) mmol/L Anion Gap 11 (2-11) mmol/L BUN 45 H (6-24) mg/dL Creatinine 2.25 H (0.51-0.95) mg/dL Est GFR ( Amer) 26.2 (>60) Est GFR (Non-Af Amer) 21.7 (>60) BUN/Creatinine Ratio 20.0 (8-20) Glucose 176 H (70-100) mg/dL Calcium 9.9 (8.6-10.3) mg/dL Total Bilirubin 0.20 (0.2-1.0) mg/dL AST 15 (13-39) U/L ALT 11 (7-52) U/L Alkaline Phosphatase 82 (34-104) U/L Total Creatine Kinase 172 (10-223) U/L Total Protein 7.3 (6.4-8.9) g/dL Albumin 4.4 (3.2-5.2) g/dL Globulin 2.9 (2-4) g/dL Albumin/Globulin Ratio 1.5 (1-3) TSH 1.25 (0.34-5.60) mcIU/mL Serum Alcohol < 10 (<10) mg/dL CXR, personally reviewed: no acute process Impression: 68F HX opioid abuse/withdrawal, paroxysmal AFIB, seizure disorder, HTN, CKD stg 3, & GI bleed 2nd duodenal ulcers presenting with acute hypoxic hypercarbic respiratory failure 2nd opioid abuse as well as SUZETTE DIAGNOSIS & PLAN Primary opioid abuse/overdose w/ 2nd acute hypoxic hypercarbic respiratory failure : continuous oximetry : naloxone PRN for lethargy or suppressed respiratory rate : transition social worker consult : supplemental oxygen SUZETTE w/ baseline CKD stg 3 : suspect 2nd NSAID abuse : avoid nephrotoxic agents : IVFs, trend Secondary paroxysmal AFIB : reduce carvedilol as below seizure disorder : continue levetiracetam HTN : continue decrease carvedilol to 12.5mg BID & amlodipine to 5mg daily to avoid hypotension in setting of SUZETTE hypothyroidism : continue levothyroxine HX GI bleed 2nd duodenal ulcers : continue pantoprazole anxiety : continue escitalopram & bupropion : reduce alprazolam to 0.5mg PO Q6H PRN Admission Rational: observation for opioid abuse w/ 2nd acute hypoxic hypercarbic respiratory failure & SUZETTE 2nd NSAID abuse DVTp: heparin SQ Code Status: full HCP: sisterRenetta
[2018-05-26 03:34] LABS: Urine Appearance Cloudy; Urine Blood Negative (Negative); Urine Color Yellow; Urine Ketones Negative (Negative); Urine Protein 1+(30 mg/dL) (Negative); Urine Red Blood Cell Trace(0-2/hpf) (Absent); Urine Specific Gravity 1.023 (1.010-1.030); Urine Urobilinogen Negative (Negative); Urine White Blood Cell 2+(11-20/hpf) (Absent)
[2018-05-26] MEDS ORDERED: Melatonin 3 MG TAB PO PRN (04:33)
[2018-05-26] MEDS ORDERED: NS 0.9% 1000 ML* 1,000 ML IV SCH (04:45)
[2018-05-26 06:25] LABS: EGFR Non-African American 28.4 (>60)
[2018-05-26] MEDS: Heparin VIAL(*) 5000 UNITS/ML VIAL (FIVE THOUSAND) SUBCUT SCH ×3 (07:02→21:42)
--- NOTE | 2018-05-26 08:14 | RAD ---
HISTORY: Fall COMPARISONS: November 26, 2017 VIEWS: 1: frontal portable view of the chest at 1:50 AM FINDINGS: LINES AND TUBES: None. CARDIOMEDIASTINAL SILHOUETTE: The cardiomediastinal silhouette is normal for portable technique. PLEURA: The costophrenic angles are sharp. No pleural abnormalities are noted. LUNG PARENCHYMA: The lungs are clear. ABDOMEN: The upper abdomen is clear. There is no subphrenic gas. BONES AND SOFT TISSUES: No bone or soft tissue abnormalities are noted. IMPRESSION: NO ACTIVE CARDIOPULMONARY DISEASE. R0
[2018-05-26 08:32] LABS: INR 0.94 (0.77-1.02)
[2018-05-26] MEDS: PTO: Pantoprazole TAB (NF) 20 MG TAB PO SCH (09:50)
[2018-05-26] MEDS: levETIRAcetam TAB* 500 MG PO SCH ×2 (09:50→21:03)
[2018-05-26] MEDS: CMC:Escitalopram (NF) 10 MG TAB PO SCH (09:51)
[2018-05-26] MEDS: Carvedilol TAB* 6.25 MG PO SCH ×2 (09:51→21:37)
[2018-05-26] MEDS: amLODIPine TAB* 5 MG PO SCH (09:51)
[2018-05-26] MEDS: BuPROPion XL* 150 MG TAB.XL PO SCH (09:51)
[2018-05-26] MEDS: Docusate CAP* 100 MG PO SCH ×2 (09:52→21:06)
[2018-05-26] MEDS: Acetaminophen TAB* 325 MG PO PRN (13:50)
[2018-05-26] MEDS: ALPRAZolam TAB* 0.5 MG PO PRN (13:50)
[2018-05-26] MEDS ORDERED: traMADol TAB* 50 MG PO PRN (16:02)
[2018-05-26] MEDS ORDERED: Albuterol 2.5 MG/3 ML NEB.SOL* (0.083%) INH PRN (16:02)
--- NOTE | 2018-05-26 16:09 | PN ---
Subjective Date of Service: 05/26/18 Interval History: Patient was seen and examined earlier today. Reports feeling much better, breathing with ease, eating her lunch during this visit. Denies chest pain or SOB. Recalls all events until she "blacked out" at home, then brought to ED. No headaches, dizziness, blurred vision or seizures. She has no complaints today. Family History: Unchanged from Admission Social History: Unchanged from Admission Past Medical History: Unchanged from Admission Objective Active Medications: Acetaminophen (Tylenol Tab*) 650 mg PO Q6H PRN PRN Reason: FEVER/PAIN Last Admin: 05/26/18 13:50 Dose: 650 mg Albuterol (Ventolin 2.5 Mg/3 Ml Neb.Alivia*) 2.5 mg INH Q4H PRN PRN Reason: SOB/WHEEZING Alprazolam (Xanax Tab*) 0.5 mg PO Q6H PRN PRN Reason: ANXIETY Last Admin: 05/26/18 13:50 Dose: 0.5 mg Amlodipine Besylate (Norvasc Tab*) 5 mg PO DAILY [facility] Last Admin: 05/26/18 09:51 Dose: 5 mg Bupropion HCl (Wellbutrin Xl *) 150 mg PO DAILY [facility]; Protocol Last Admin: 05/26/18 09:51 Dose: 150 mg Carvedilol (Coreg Tab*) 12.5 mg PO BID [facility] Last Admin: 05/26/18 09:51 Dose: 12.5 mg Docusate Sodium (Colace Cap*) 200 mg PO BID [facility] Last Admin: 05/26/18 09:52 Dose: Not Given Escitalopram Oxalate (Lexapro (Nf)) 20 mg PO QAM [facility] Last Admin: 05/26/18 09:51 Dose: 20 mg Heparin Sodium (Porcine) (Heparin Vial(*)) 5,000 units SUBCUT Q8HR [facility] Last Admin: 05/26/18 13:46 Dose: 5,000 units Levetiracetam (Keppra Tab*) 500 mg PO BID [facility] Last Admin: 05/26/18 09:50 Dose: 500 mg Levothyroxine Sodium (Synthroid Tab*) 88 mcg PO DAILY@0600 [facility] Melatonin (Melatonin) 3 mg PO BEDTIME PRN; Protocol PRN Reason: Sleep Pantoprazole Sodium (Protonix Tab (Nf)) 20 mg PO DAILY [facility] Last Admin: 05/26/18 09:50 Dose: 20 mg Tramadol HCl (Ultram*) 50 mg PO Q6H PRN PRN Reason: PAIN Vital Signs - 8 hr 05/26/18 05/26/18 05/26/18 11:10 13:50 15:08 Temperature 97.4 F 99.1 F Pulse Rate 64 57 Respiratory 16 18 20 Rate Blood Pressure 103/54 117/59 (mmHg) O2 Sat by Pulse 98 95 Oximetry 05/26/18 15:55 Temperature Pulse Rate Respiratory 16 Rate Blood Pressure (mmHg) O2 Sat by Pulse Oximetry Oxygen Devices in Use Now: Nasal Cannula Appearance: Appears comfortable and in NAD Eyes: No Scleral Icterus, PERRLA Ears/Nose/Mouth/Throat: Clear Oropharnyx, Mucous Membranes Moist Neck: NL Appearance and Movements; NL JVP, Trachea Midline Respiratory: Symmetrical Chest Expansion and Respiratory Effort, Clear to Auscultation Cardiovascular: NL Sounds; No Murmurs; No JVD, RRR Abdominal: NL Sounds; No Tenderness; No Distention Extremities: No Edema Neurological: Alert and Oriented x 3, NL Sensation, NL Muscle Strength and Tone Nutrition: Taking PO's Result Diagrams: 05/26/18 01:41 05/26/18 05:51 Additional Lab and Data: . Microbiology and Other Data: . Diagnostic Imaging: Patient Name: TREY TIDWELL Medical Record#: [id number] Ordering Physician: Eliud Aldana MD Acct.#: [id number] : 1950 Age: 68 Sex: F Location: [address] [place] [address]/[employer] Exam Date: 05/26/18126 ADM Status: ADM Linda Order Information: CHEST AP PORTABLE Accession Number: [id number] CPT: 76131 HISTORY: Fall IMPRESSION: NO ACTIVE CARDIOPULMONARY DISEASE. <Electronically signed by Marky Jj MD in OV> 05/26/18 0810 EKG Data: . Assess/Plan/Problems-Billing Assessment: A 68 y/o female with PMHx opioid abuse/withdrawal, HTN, seizures, who presented to ED with signs and symptoms consistent with opioid overdose, found to be in acute hypoxic respiratory failure, improved with Narcan and supplemental oxygen. - Patient Problems (1) Opioid overdose Current Visit: Yes Status: Acute Comment: - Improved with Naloxone and supplemental oxygen, now on 2L/min via NC - Naloxone prn if signs of lethargy or apnea - No cognetive or neurological deficit - Continue oximetrey tonight (2) Acute respiratory failure with hypoxia Current Visit: Yes Status: Acute Comment: - Secondary to opioid overdose - Clinically improved, maintaining good O2 sats (3) Acute kidney failure Current Visit: Yes Status: Acute Comment: - On top of baseline stage 3 CKD - Likely secondary to NSAIDs abuse - IVF and check labs in AM (4) Paroxysmal atrial fibrillation Current Visit: Yes Status: Acute Comment: - Continue Cavedilol at reduced dose (5) HTN (hypertension) Current Visit: Yes Status: Acute Comment: - Continue reduced Amlodipine and Carvedilol dose at 5mg and 12.5 mg BID respectively to avoid hypotension, giving AKF (6) Hypothyroidism Current Visit: Yes Status: Acute Comment: - Continue Synthroid (7) Anxiety Current Visit: Yes Status: Acute Comment: - Continue home meds (8) DVT prophylaxis Current Visit: Yes Status: Acute Comment: - SubQ heparin (9) Full code status Current Visit: Yes Status: Acute Status and Disposition: OBV status, likely home in AM if medically stable.
[2018-05-27] MEDS: ALPRAZolam TAB* 0.5 MG PO PRN ×4 (00:57→21:45)
[2018-05-27] MEDS ORDERED: Loperamide CAP* 2 MG PO ONE (01:01)
[2018-05-27] MEDS: Vancomycin CAP* 125 MG CAP PO SCH ×5 (02:57→21:54)
[2018-05-27] MEDS: Levothyroxine TAB* 88 MCG TAB PO SCH (05:34)
[2018-05-27] MEDS: Heparin VIAL(*) 5000 UNITS/ML VIAL (FIVE THOUSAND) SUBCUT SCH ×3 (05:34→21:44)
[2018-05-27 06:04] LABS: ABS Basophils 0 10^3/ul (0-0.2); ABS Eosinophils 0.3 10^3/ul (0-0.6); ABS Lymphocytes 2.9 10^3/ul (1.0-4.8); ABS Monocytes 0.7 10^3/ul (0-0.8); ABS Neutrophils 4.8 10^3/ul (1.5-7.7); ABS Nucleated RBC 0 10^3/ul; Eosinophil % 3.1 % (0-6); Hematocrit 33 % (35-47); Hemoglobin 10.6 g/dl (12.0-16.0); Lymphocyte % 33.5 % (25-47); Mean Corpuscular HGB Conc 32 g/dl (31-36); Mean Corpuscular Hemoglobin 25 pg (27-31); Mean Corpuscular Volume 79 fL (80-97); Mean Platelet Volume 7.6 um3 (7.4-10.4); Nucleated Red Blood Cells % 0; Platelet Count 199 10^3/ul (150-450); Red Blood Count 4.15 10^6/ul (4.00-5.40); Red Cell Distribution Width 14 % (10.5-15); White Blood Count 8.6 10^3/ul (3.5-10.8)
[2018-05-27 06:25] LABS: EGFR Non-African American 47.1 (>60)
[2018-05-27] MEDS: amLODIPine TAB* 5 MG PO SCH (08:56)
[2018-05-27] MEDS: Carvedilol TAB* 6.25 MG PO SCH ×2 (08:56→21:43)
[2018-05-27] MEDS: levETIRAcetam TAB* 500 MG PO SCH ×2 (08:56→21:43)
[2018-05-27] MEDS: CMC:Escitalopram (NF) 10 MG TAB PO SCH (08:57)
[2018-05-27] MEDS: BuPROPion XL* 150 MG TAB.XL PO SCH (08:57)
[2018-05-27] MEDS: PTO: Pantoprazole TAB (NF) 20 MG TAB PO SCH (08:57)
[2018-05-27] MEDS: Docusate CAP* 100 MG PO SCH ×2 (08:58→21:56)
[2018-05-27] MEDS: NS 0.9% 1000 ML* 1,000 ML IV SCH ×2 (08:58→17:55)
--- NOTE | 2018-05-27 14:57 | PN ---
Subjective Date of Service: 05/27/18 Interval History: Patient was seen and examined earlier this morning. Events noted from last night. Patient apparently started having explosive watery diarrhea yesterday evening, stools tested positive for C. diff, started on PO vancomycin earlier this AM. Reports some bloating, but denies abdominal pain, nausea or vomiting. She had a "pre-made salad" at [facility] prior to her admission the night before. Denies hx C.diff in the past or recent antibiotics use. Tolerating regular diet. Feels tired from being up all night on the toilet. IV fluids resumed this morning. Denies headaches, chest pain, dizziness, seizure or any other associated symptoms. Family History: Unchanged from Admission Social History: Unchanged from Admission Past Medical History: Unchanged from Admission Objective Active Medications: Acetaminophen (Tylenol Tab*) 650 mg PO Q6H PRN PRN Reason: FEVER/PAIN Last Admin: 05/26/18 13:50 Dose: 650 mg Albuterol (Ventolin 2.5 Mg/3 Ml Neb.Alivia*) 2.5 mg INH Q4H PRN PRN Reason: SOB/WHEEZING Alprazolam (Xanax Tab*) 0.5 mg PO Q6H PRN PRN Reason: ANXIETY Last Admin: 05/27/18 09:25 Dose: 0.5 mg Amlodipine Besylate (Norvasc Tab*) 5 mg PO DAILY [facility] Last Admin: 05/27/18 08:56 Dose: 5 mg Bupropion HCl (Wellbutrin Xl *) 150 mg PO DAILY [facility]; Protocol Last Admin: 05/27/18 08:57 Dose: 150 mg Carvedilol (Coreg Tab*) 12.5 mg PO BID [facility] Last Admin: 05/27/18 08:56 Dose: 12.5 mg Docusate Sodium (Colace Cap*) 200 mg PO BID [facility] Last Admin: 05/27/18 08:58 Dose: Not Given Escitalopram Oxalate (Lexapro (Nf)) 20 mg PO QAM [facility] Last Admin: 05/27/18 08:57 Dose: 20 mg Heparin Sodium (Porcine) (Heparin Vial(*)) 5,000 units SUBCUT Q8HR [facility] Last Admin: 05/27/18 14:24 Dose: 5,000 units Sodium Chloride (Ns 0.9% 1000 Ml*) 1,000 mls @ 125 mls/hr IV PER RATE [facility] Last Admin: 05/27/18 08:58 Dose: 125 mls/hr Levetiracetam (Keppra Tab*) 500 mg PO BID [facility] Last Admin: 05/27/18 08:56 Dose: 500 mg Levothyroxine Sodium (Synthroid Tab*) 88 mcg PO DAILY@0600 [facility] Last Admin: 05/27/18 05:34 Dose: 88 mcg Melatonin (Melatonin) 3 mg PO BEDTIME PRN; Protocol PRN Reason: Sleep Pantoprazole Sodium (Protonix Tab (Nf)) 20 mg PO DAILY [facility] Last Admin: 05/27/18 08:57 Dose: 20 mg Tramadol HCl (Ultram*) 50 mg PO Q6H PRN PRN Reason: PAIN Last Admin: 05/26/18 16:47 Dose: 50 mg Vancomycin HCl (Vancomycin Cap*) 125 mg PO QID [facility] Last Admin: 05/27/18 12:36 Dose: 125 mg Vital Signs - 8 hr 05/27/18 05/27/18 05/27/18 08:05 09:00 09:25 Temperature 98.2 F Pulse Rate 50 68 Respiratory 16 16 Rate Blood Pressure 112/68 (mmHg) O2 Sat by Pulse 96 97 Oximetry 05/27/18 05/27/18 11:12 11:15 Temperature 97.6 F Pulse Rate 52 Respiratory 16 16 Rate Blood Pressure 106/92 (mmHg) O2 Sat by Pulse 96 Oximetry Oxygen Devices in Use Now: None Appearance: Appears comfortable and in NAD Eyes: No Scleral Icterus, PERRLA Ears/Nose/Mouth/Throat: Clear Oropharnyx, - - Mucous membranes dry Neck: NL Appearance and Movements; NL JVP, Trachea Midline Respiratory: Symmetrical Chest Expansion and Respiratory Effort, Clear to Auscultation Cardiovascular: NL Sounds; No Murmurs; No JVD, RRR Abdominal: - - Abdomen soft, mildly distended and non-tender. Bowel sounds are active in all quadrants. No hernias or masses. Extremities: No Edema Neurological: Alert and Oriented x 3 Nutrition: Taking PO's Result Diagrams: 05/27/18 05:40 05/27/18 05:40 Additional Lab and Data: . Microbiology and Other Data: . RUN DATE: 05/27/18 [facility] LAB LIVE PAGE 1 RUN TIME: [id number] [place], [place] [address] Specimen Inquiry Name: TREY TIDWELL : [address]: Arvind Ramirez MD Acct: [id number] Unit: [id number] AGE: 68 Location: [place] [address] Re05/27/18 SEX: F Status: ADM IN SPEC: [id number] RYANN: 05/26/[address]: Joe Dickerson [employer] REQ: [id number] RECD: 05/27/18 STATUS: COMP OTHR DR: Arvind Ramirez MD _ No Primary Care Phys,NOPCP SOURCE: STOOL SPDESC: ORDERED: C. diff PCR COMMENTS: Verbal to [id number] by [id number] at 0213 on 05/27/18. Results read back accurately. Procedure Result Reported Site Stool Specimen Description Final 05/27/18- 0109 ML Stool Color Light Brown Stool Form Nonformed Stool Consistency Liquid C. difficile PCR Final 05/27/18- 0213 ML Organism 1 027 Presumptive NEGATIVE Organism 2 Toxigenic C.diff POSITIVE Diagnostic Imaging: . EKG Data: . Assess/Plan/Problems-Billing Assessment: A 68 y/o female with PMHx opioid abuse/withdrawal, HTN, seizures, who presented to ED with signs and symptoms consistent with opioid overdose, found to be in acute hypoxic respiratory failure, improved with Narcan and supplemental oxygen ; now with sudden onset of watery diarrhea with evidence of C. diff colitis. - Patient Problems (1) Opioid overdose Current Visit: Yes Status: Acute Comment: - Improved with Naloxone and supplemental oxygen, now on room air. - No cognetive or neurological deficit - Continue Tele monitoring (2) Acute respiratory failure with hypoxia Current Visit: Yes Status: Acute Comment: - Secondary to opioid overdose - Clinically improved, maintaining good O2 sats on room air (3) C. difficile colitis Current Visit: Yes Status: Acute Comment: - Patient with less than 24hrs hospitalization, doubt if it is nosocomial in origin - Denies hx of C. diff or recent Abx intake - Continue Vanco 125mg PO QID - If no improvement in stool frequency and consistency, may consider ID consult - Abdominal exam unremarkable, no evidence of acute abdomen or toxic megacolon (4) Acute kidney failure Current Visit: Yes Status: Acute Comment: - On top of baseline stage 3 CKD - Likely secondary to NSAIDs abuse - BUN/Cr improved with IVF (5) Paroxysmal atrial fibrillation Current Visit: Yes Status: Acute Comment: - Continue Cavedilol at reduced dose (6) HTN (hypertension) Current Visit: Yes Status: Acute Comment: - Continue reduced Amlodipine and Carvedilol dose at 5mg and 12.5 mg BID respectively to avoid hypotension, giving AKF (7) Hypothyroidism Current Visit: Yes Status: Acute Comment: - Continue Synthroid (8) Anxiety Current Visit: Yes Status: Acute Comment: - Continue home meds (9) DVT prophylaxis Current Visit: Yes Status: Acute Comment: - SubQ heparin (10) Full code status Current Visit: Yes Status: Acute Status and Disposition: Inpatient. Anticipate discharge to home once medically stable.
[2018-05-27] MEDS: Acetaminophen TAB* 325 MG PO PRN (17:41)
[2018-05-28] MEDS: NS 0.9% 1000 ML* 1,000 ML IV SCH (02:32)
[2018-05-28 05:49] LABS: ABS Basophils 0.1 10^3/ul (0-0.2); ABS Eosinophils 0.3 10^3/ul (0-0.6); ABS Lymphocytes 2.6 10^3/ul (1.0-4.8); ABS Monocytes 0.5 10^3/ul (0-0.8); ABS Neutrophils 3.7 10^3/ul (1.5-7.7); ABS Nucleated RBC 0 10^3/ul; Eosinophil % 4.2 % (0-6); Hematocrit 32 % (35-47); Hemoglobin 10.6 g/dl (12.0-16.0); Lymphocyte % 36.7 % (25-47); Mean Corpuscular HGB Conc 33 g/dl (31-36); Mean Corpuscular Hemoglobin 25 pg (27-31); Mean Corpuscular Volume 77 fL (80-97); Mean Platelet Volume 7.7 um3 (7.4-10.4); Nucleated Red Blood Cells % 0.1; Platelet Count 198 10^3/ul (150-450); Red Blood Count 4.18 10^6/ul (4.00-5.40); Red Cell Distribution Width 14 % (10.5-15); White Blood Count 7.2 10^3/ul (3.5-10.8)
[2018-05-28 06:03] LABS: EGFR Non-African American 60.1 (>60)
[2018-05-28] MEDS: Levothyroxine TAB* 88 MCG TAB PO SCH (06:08)
[2018-05-28] MEDS: Heparin VIAL(*) 5000 UNITS/ML VIAL (FIVE THOUSAND) SUBCUT SCH (06:08)
[2018-05-28] MEDS: CMC:Escitalopram (NF) 10 MG TAB PO SCH (07:43)
[2018-05-28] MEDS: Acetaminophen TAB* 325 MG PO PRN (07:43)
[2018-05-28] MEDS: ALPRAZolam TAB* 0.5 MG PO PRN (07:44)
[2018-05-28] MEDS: amLODIPine TAB* 5 MG PO SCH (07:44)
[2018-05-28] MEDS: BuPROPion XL* 150 MG TAB.XL PO SCH (07:44)
[2018-05-28] MEDS: Vancomycin CAP* 125 MG CAP PO SCH (07:44)
[2018-05-28] MEDS: Docusate CAP* 100 MG PO SCH (07:44)
[2018-05-28] MEDS: levETIRAcetam TAB* 500 MG PO SCH (07:44)
[2018-05-28] MEDS: PTO: Pantoprazole TAB (NF) 20 MG TAB PO SCH (07:44)
[2018-05-28 08:46] VITALS: BP 124/73
[2018-05-28] MEDS: Carvedilol TAB* 6.25 MG PO SCH (09:14)
--- NOTE | 2018-05-28 20:42 | DS ---
CC: Dr. Mathew * DISCHARGE SUMMARY: DATE OF ADMISSION: 05/26/18 DATE OF DISCHARGE: 05/28/18 PRIMARY CARE PROVIDER: Dr. Mathew. MY ATTENDING WHILE IN THE HOSPITAL: Annetta Sims DO * (DICTATED BY MANOLO FAY) PRIMARY DISCHARGE DIAGNOSES: 1. Unintentional opioid overdose. 2. Acute hypoxic and hypercarbic respiratory failure. 3. Diarrhea, possible C. diff colitis. SECONDARY DISCHARGE DIAGNOSES: 1. History of opioid abuse. 2. Paroxysmal atrial fibrillation. 3. Seizure disorder. 4. Hypertension. 5. Chronic kidney disease, stage 3. 6. Hypothyroidism. 7. GI bleed due to duodenal ulcers from probable NSAID use. 8. Anxiety. STUDIES DONE WHILE IN THE HOSPITAL: Chest x-ray from 05/26/18 read as no active cardiopulmonary disease. MEDICATIONS AT DISCHARGE: 1. Levothyroxine 88 mcg p.o. daily. 2. Keppra 500 mg p.o. b.i.d. 3. Lexapro 20 mg p.o. q.a.m. 4. Alprazolam 1 mg p.o. q.4 hours as needed. 5. Aspirin 81 mg p.o. daily. 6. Amlodipine 10 mg p.o. daily. 7. Coreg 25 mg p.o. daily. 8. Tylenol 650 mg p.o. q.6 hours as needed. 9. Pantoprazole 20 mg p.o. daily. 10. Meloxicam 7.5 mg p.o. daily. 11. Bupropion 150 mg p.o. daily. 12. Vancomycin 125 mg p.o. 4 times daily x9 days. New medication at discharge: 1. Vancomycin. HOSPITAL COURSE: This is a brief summary of the patient's presentation. For more details, please see the history and physical from Dr. Arvind Ramirez on 05/26/18. In brief, the patient is a 68-year-old female, who presented to the emergency department after successfully having weaned off her opioids approximately 6 months ago. When she was cleaning her house today, was having quite a bit of pain and found a leftover of 30 mg OxyContin pill which she took , she then drove and was found to be driving erratically. When she got home, felt too weak to walk and had to crawl into her house. The patient does not remember anything else, but knows that her sister called EMS. She was brought in and had oxygen saturation in the 80s. Naloxone was administered and was found to by an ABG in acute hypoxic hypercarbic respiratory failure. The patient was admitted to the hospital. The patient did not need additional naloxone. The patient was started on supplemental oxygen. The patient had a creatinine of 2.25 which decreased appropriately to 0.93 when she was given fluids. The patient had a urine culture which showed positive leukocyte esterase, positive protein, squamous epithelial cells but had no nitrite and the culture was negative. The patient had positive opioids and benzodiazepines in her urine. The patient denied any dehydration. The patient's respiratory status improved greatly over the course of her hospitalization. The patient was able to be weaned off her oxygen on 05/27/18. The patient on 05/27/18 had several episodes of explosive diarrhea. The patient states that she ate a pre-made salad from [employer]. The patient had a test for C. diff which came back positive and was started on vancomycin, at which time her diarrhea abruptly stopped. The patient had abdominal pain while she was having diarrhea, but this also quickly resolved after she was put on the vancomycin. The patient had no white count corresponding to her diarrhea. The patient had no vital signs, no temperature elevations, tachycardia, or hypotension corresponding to her diarrhea. The patient had no bowel movements on 05/28/18. The patient was stable and amenable for discharge on 05/28/18. PHYSICAL EXAMINATION ON DAY OF DISCHARGE: General: The patient is a 68-year- old female, who appears her stated age and sitting comfortably in bed, in no acute distress. Vital Signs: At the time of discharge, temperature 98.2, pulse rate 55, respiratory rate 20, oxygen saturation 95% on room air, blood pressure 124/73. HEENT: Head normocephalic, atraumatic. Sclerae anicteric. No conjunctival injection. Nasal mucosa moist. Oral mucosa moist. No pharyngeal erythema, discharge, or exudate. Neck: Supple, nontender. No lymphadenopathy. No carotid bruits auscultated. No JVD. Cardiac: Regular rate and rhythm. No clicks, murmurs, gallops, or rubs. Pulses are 2+ in bilateral dorsal pedis, posterior tibialis, and radial areas. Respiratory: Clear to auscultation bilaterally. No wheezes, rales, or rhonchi. Good air exchange bilaterally. Abdomen: Soft, nontender, nondistended. Bowel sounds present and normoactive in all 4 quadrants. No hepatosplenomegaly. No abdominal bruits auscultated. No hepatojugular reflux. Genitourinary: No suprapubic or CVA tenderness. Skin: Clean, dry, and intact. No rash. Neuro: Cranial nerves II through XII intact. No focal deficits. Alert and oriented x3. Psychiatric: Pleasant and cooperative. LABORATORY DATA: On day of discharge, white blood cell count 7.2, hemoglobin 10.6, hematocrit 32, MCV 77, MCH 25, platelet count 198,000. Sodium 142, potassium 4.0, chloride 110, carbon dioxide 25, anion gap 7, BUN 20, creatinine 0.93, calcium 9.1, glucose 109. DISCHARGE PLAN: The patient will be discharged to home. The patient has been told to avoid opioids in high doses and she understands and states that she will abstain entirely from opioids with plan for surgical knee replacement when available for her to control her knee pain. The patient should follow up with Orthopedics with regards to this. The patient should follow up with primary care provider within 1 week. The patient should discuss her pain control. The patient takes ibuprofen twice a day and also has meloxicam once a day on her medication reconciliation. Given the patient's history of GI bleeding as well as acute kidney injury, the patient should avoid taking these at the same time. The patient should have a repeat BMP done within 1 week from her discharge. The patient has possible iron- deficiency anemia and consideration for iron studies and iron therapy should be made. There should also be concern for upper or lower GI bleeding, the patient should have routine colonoscopy and consideration should be made for an upper endoscopy due to her history of NSAID- induced gastric ulcers. The patient should take Tylenol as her primary analgesic. The patient will be continued on 10 days of vancomycin for a possible initial episode of Clostridium difficile. This should be continued for recurrence if the patient has recurrent diarrhea after her vancomycin is stopped. The patient should return to the hospital for alarming symptoms such as severe uncontrolled diarrhea, difficulty breathing, chest pain, syncope, or other alarming symptoms. The patient should have a heart-healthy diet without caffeine and engage in activity as tolerated. TIME SPENT: Approximately 60 minutes were spent on the discharge of this patient, 30 of which was spent [id number] with the patient obtaining history and physical and discussing treatment plan. MANOLO FAY [id number]/CPS #: [id number]
== END 2018-05-28 11:10 | disposition home or self-care (01) | DRG 917 ==
LOC: ED 00:36 → MEDTELE 06:45 → OBSVTOIN 05-27 08:33
PROVIDERS: ADMIT Hospitalist; ATTEND Hospitalist
DX: T40.2X1A Poisoning by other opioids, accidental (unintentional), initial encounter (principal); J96.02 Acute respiratory failure with hypercapnia; J96.01 Acute respiratory failure with hypoxia; A04.72 Enterocolitis due to Clostridium difficile, not specified as recurrent; N17.8 Other acute kidney failure; Y92.009 Unspecified place in unspecified non-institutional (private) residence as the place of occurrence of the external cause; I48.0 Paroxysmal atrial fibrillation; K26.9 Duodenal ulcer, unspecified as acute or chronic, without hemorrhage or perforation; I12.9 Hypertensive chronic kidney disease with stage 1 through stage 4 chronic kidney disease, or unspecified chronic kidney disease; N18.3 Chronic kidney disease, stage 3 (moderate); E03.9 Hypothyroidism, unspecified; F41.9 Anxiety disorder, unspecified; G40.909 Epilepsy, unspecified, not intractable, without status epilepticus; F11.21 Opioid dependence, in remission; Z79.1 Long term (current) use of non-steroidal anti-inflammatories (NSAID); Z79.82 Long term (current) use of aspirin; Z79.899 Other long term (current) drug therapy; Z81.1 Family history of alcohol abuse and dependence; Z82.3 Family history of stroke; Z80.0 Family history of malignant neoplasm of digestive organs
CPT/HCPCS: 36415; 71045; 80048; 80053; 80307; 80320; 81003; 81015; 82550; 82803; 84443; 85025; 85610; 85730; 87045; 87046; 87077; 87086; 87493; 87899; 99285; A9270-GY; G0378; G0480; J1644; J2310